=== PATIENT | male | born 1970 | race Two or more races ===

== ENCOUNTER 2022-04-12 12:27 | Emergency (ER) | payer MEDICAID ==
[~2022-04-12] VITALS: Ht 162.6 cm; Wt 82.8 kg
[2022-04-12 14:26] VITALS: BP 167/105
[2022-04-12] MEDS ORDERED: CEPH-510 PO ×2 (15:02→17:32)
[2022-04-12] MEDS ORDERED: IBUP600T28 PO ×2 (15:02→17:32)
[2022-04-12] MEDS ORDERED: LIDOCAINE 1% HCL (LOCAL ANESTH.) INJ 20ML MDV ID ONE (15:15)
[2022-04-12] MEDS ORDERED: KETOROLAC TROMETH 30 MG/ML 1ML VIAL IM ONE (15:15)
[2022-04-12] MEDS ORDERED: TETANUS-DIPTH-ACEL PERTUSSIS 0.5ML SYR Tdap IM ONE (15:15)
[2022-04-12] MEDS ORDERED: NEOMYCIN-BACITRACIN-POLYM UNITDOSE PKG TOP OINT TOP ONE (17:45)
== END 2022-04-12 17:38 | disposition home or self-care (01) ==
LOC: ER 12:27
DX: S61.216A Laceration without foreign body of right little finger without damage to nail, initial encounter (principal); W18.39XA Other fall on same level, initial encounter; Y93.89 Activity, other specified; Y92.89 Other specified places as the place of occurrence of the external cause; Y99.8 Other external cause status
CPT/HCPCS: 12001; 73140; 90471; 90715; 96372; 99284; J1885

== ENCOUNTER 2022-04-16 09:46 | Emergency (ER) | payer MEDICAID ==
[~2022-04-16] VITALS: Ht 157.5 cm; Wt 84.0 kg
[~2022-04-16 09:46] MED LIST: CEPH-510 PO; IBUP600T28 PO
[2022-04-16 10:37] VITALS: BP 162/83
[2022-04-16] MEDS ORDERED: IBUP800T27 PO (10:37)
== END 2022-04-16 10:41 | disposition home or self-care (01) ==
LOC: ER 09:46
DX: S61.216D Laceration without foreign body of right little finger without damage to nail, subsequent encounter (principal); X58.XXXD Exposure to other specified factors, subsequent encounter